=== PATIENT | male | born 1985 | race Asian ===

== ENCOUNTER 2020-06-20 07:25 | Day surgery (SDC) | payer MEDICAID, SELFPAY ==
[~2020-06-20] VITALS: Ht 165.1 cm; Wt 60.8 kg
[2020-06-20] MEDS ORDERED: SIMETHICONE 40 MG/0.6 ML ML ONE (07:34)
[2020-06-20] MEDS: MIDAZOLAM HCL 5 MG/5 ML VIAL ONE ×2 (08:44→08:46)
[2020-06-20] MEDS: fentaNYL CITRATE/PF 100 MCG/2 ML AMP ONE ×2 (08:44→08:46)
[2020-06-20 12:22] VITALS: BP_SYST 112
== END 2020-06-20 10:05 | disposition home or self-care (01) ==
LOC: SDS 07:25 → SMU 07:25 → SDS 10:05
PROVIDERS: ATTEND Internal Medicine
DX: R10.84 Generalized abdominal pain (principal); K20.90 Esophagitis, unspecified without bleeding; K29.70 Gastritis, unspecified, without bleeding; Z20.828 Contact with and (suspected) exposure to other viral communicable diseases; Z79.899 Other long term (current) drug therapy
CPT/HCPCS: 36415; 43239; 87081; 88305; 88312; 88313; 99152; G0378; J2250; J3010; U0003